=== PATIENT | female | born 1950 | race Caucasian/White ===

== ENCOUNTER → 2018-02-03 | Outpatient (CLI) | payer MEDICARE, OTHER ==
[~2018-02-03] MED LIST: ESTR0.053 TD; LEVO100T4 PO; [UNRECOGNIZED DRUG - CODE] PO
[2018-02-03 10:52] LABS: FREE T3 2.92 PG/ML (2.18-3.98); FREE T4 0.98 NG/DL (0.76-1.46)
== END ==
LOC: PLAB 07:42
PROVIDERS: ATTEND Family Medicine
DX: E03.8 Other specified hypothyroidism (principal); E55.9 Vitamin D deficiency, unspecified; Z79.899 Other long term (current) drug therapy
CPT/HCPCS: 36415; 82306; 83789; 84439; 84443; 84481; 84482